=== PATIENT | female | born 1945 | race Caucasian/White ===

== ENCOUNTER 2021-02-24 12:49 | Day surgery (SDC) | payer MEDICARE, OTHER ==
[~2021-02-24] VITALS: Ht 170.2 cm; Wt 66.0 kg
[~2021-02-24 12:49] MED LIST: ALDACTONE25 MG PO; BONE ESSENT166.75 MG PO; CLOBETASOL 0.0560 G1 TOP; LEVOTHYROXINE50 MC1 PO; METOPROLOL SUCC50 MG PO; OMEPRAZOLE20 MG PO; ZOCOR40 MG PO
--- NOTE | 2021-02-24 14:09 | NUR ---
02/24/21 1409 Ruma Arnold 1359 PT TO PACU DROUSY BUT TALKING DENIES SORE THROAT.
--- NOTE | 2021-02-25 13:48 | OR ---
[facility] [address] [place], [place] [address] Signed DATE OF OPERATION: 02/24/2021 SURGEON: Naomi Blevins MD PREOPERATIVE DIAGNOSIS: Known distal esophageal Garcia's epithelium. POSTOPERATIVE DIAGNOSES: 1. Short-segment Garcia's epithelium, benign appearing. 2. Small superficial mid esophageal nodules, biopsied. PROCEDURE: Esophagogastroduodenoscopy with biopsy. ANESTHESIA: Intravenous sedation, fentanyl 100 mcg and Versed 4 mg. INDICATION: This 75-year-old white woman is a patient of Dr. Jah Flores. She has known Garcia's esophagus, has undergone surveillance endoscopy over many years. Her last upper endoscopy was three years ago by Dr. Hayes Harris in [place]. She has no dysphagia or other problems. She is taking the PPI medication currently. She has no family history of esophageal cancer that she knows of. She is admitted to undergo surveillance upper endoscopy. She understands the risks of bleeding, infection, and perforation. FINDINGS: Vocal cords were normal. The proximal esophagus was entirely normal. There were few superficial mucosal nodules at 33 cm from the incisors. The distal esophagus showed no sign of stricture or neoplasm. Garcia's epithelium was identified, but was not extensive and not worrisome at all in appearance. The stomach itself showed normal rugal folds. There was some bilious fluid within the stomach. The pylorus was normal. Duodenum was normal. Retroflexed view showed a good flap valve of the GE junction. CLOtest was negative post procedure. PROCEDURE NOTE: Patient was brought to the endoscopy suite, given topical lidocaine hypopharyngeal anesthesia. She was given intravenous sedation to the point of slurred speech and nystagmus with full cardiopulmonary monitoring. A bite block was placed. An Olympus video upper endoscope was passed in the hypopharynx. The vocal cords were normal. The Electronically Signed By: NAOMI BLEVINS MD 02/25/21 1348 PATIENT NAME: KEVIN PAEZ OPERATIVE REPORT DATE OF : 47 REPORT #: [id number] PHYSICIAN: NAOMI BLEVINS MD PCP: JAH FLORES MD REPORT IS CONFIDENTIAL AND NOT TO BE RELEASED WITHOUT AUTHORIZATION [facility] [address] [place], [place] [address] Signed scope was advanced to the esophagus and it appeared normal proximally and in the distal portion, only a small amount of Garcia's esophagus noted. There was no mucosal island effect or anything of that sort certainly no stricture or neoplasm. The scope was passed to the stomach, which was insufflated with air. There was some bilious fluid within the stomach. Rugal folds were normal. Antrum was reasonably normal. Some mild erythema in the prepyloric area. The scope was easily passed in the duodenum, which was normal. Biopsies were taken of the duodenum. The scope was withdrawn and biopsies taken of prepylorus area. The scope was withdrawn. A retroflexed view undertaken showing a reasonably good flap valve. No sign of large hiatal hernia in any way. The scope was straightened and withdrawn to the distal esophagus where narrow band imaging was undertaken. The area of Garcia's epithelium was identified, that was rather unimpressive and certainly not large in any way. Multiple biopsies were taken of the Garcia's epithelium. The scope was withdrawn in the mid esophageal area at about 33 cm, showed a few mid mucosal nodules. These were biopsied as well. The scope was withdrawn. There were no other findings more proximally. Scope was removed and the patient was taken to the recovery room in good condition. CONCLUSION DIAGNOSIS: Garcia's epithelium, innocuous in appearance. Mucosal nodules in the mid esophagus, likely benign. Pathology pending. PLAN: Recommend continued use of PPI medication. Repeat upper endoscopy in 3 years sooner if symptoms should develop including dysphagia. MD BEVERLY Carlson/RUTHL /[id number] cc: Jah Flores MD Copies: JAH FLORES MD Electronically Signed By: NAOMI BLEVINS MD 02/25/21 1348 PATIENT NAME: KEVIN PAEZ OPERATIVE REPORT DATE OF : 47 REPORT #: [id number] PHYSICIAN: NAOMI BLEVINS MD PCP: JAH FLORES MD REPORT IS CONFIDENTIAL AND NOT TO BE RELEASED WITHOUT AUTHORIZATION [address] [place], [place] [address] Signed ~ Electronically Signed By: NAOMI BLEVINS MD 02/25/21 1348 PATIENT NAME: KEVIN PAEZ OPERATIVE REPORT DATE OF : 47 REPORT #: [id number] PHYSICIAN: NAOMI BLEVINS MD PCP: JAH FLORES MD REPORT IS CONFIDENTIAL AND NOT TO BE RELEASED WITHOUT AUTHORIZATION
--- NOTE | 2021-02-28 16:39 | PATH ---
[facility] [address] [place], [place] [address] Signed THIS IS AN ADDENDUM REPORT SPECIMEN(S): A DUODENUM SPECIMEN(S): B ANTRUM/PYLORUS SPECIMEN(S): C DISTAL ESOPHAGUS SPECIMEN(S): D MID ESOPHAGUS SPECIMEN SOURCE: A. DUODENUM B. ANTRUM/PYLORUS C. DISTAL ESOPHAGUS D. MID ESOPHAGUS CLINICAL HISTORY: Esophagogastroduodenoscopy with possible biopsies. History of Garcia's esophagus. Postop Dx: Minimal Garcia's esophagus, mid-esophageal mucosal nodule. MICROSCOPIC DESCRIPTION: Histologic sections of all submitted blocks are examined by light microscopy. These findings, together with the gross examination, support the pathologic diagnosis. FINAL PATHOLOGIC DIAGNOSIS: A. Duodenum, biopsy: - Duodenal mucosa with mucosal capillary congestion. - Negative for increased intraepithelial lymphocytes or villous blunting. - Negative for dysplasia or malignancy. B. Stomach, antrum/pylorus, biopsy: - Antral/oxyntic mucosa with reactive gastropathy and focal chronic, active gastritis. - Negative for Helicobacter organisms on HE stain, see Comment. - Negative for dysplasia or malignancy. - See comment. C. Esophagus, distal, biopsy: - Squamocolumnar junctional mucosa with chronic inflammation and reactive epithelial changes, consistent with reflux esophagitis. - Negative for intestinal metaplasia, dysplasia, or malignancy. D. Esophagus, mid, biopsy: - Squamous mucosa with minimal chronic inflammation. - Negative for increased intraepithelial eosinophils. - Negative for intestinal metaplasia, dysplasia, or malignancy. PATIENT NAME: KEVIN PAEZ PATHOLOGY DATE OF : 47 REPORT #: [id number] PHYSICIAN: JIA POLO PCP: JAH COLEMAN MD REPORT IS CONFIDENTIAL AND NOT TO BE RELEASED WITHOUT AUTHORIZATION [facility] [address] [place], [place] [address] Signed COMMENT: Regarding specimen B: An H. pylori immunohistochemical stain is pending and will be reported in an addendum. NAL:cml:C2NR GROSS DESCRIPTION: Four specimens are received in four containers, labeled ``AnsonKevin serna. A. The specimen, labeled "Shirley Paeze, #1," and designated on the requisition "duodenum biopsy," is received in formalin and consists of two orta soft tissue fragment(s) that measure 0.2 and 0.2 cm in greatest dimension. The specimen is entirely submitted in cassette (A1). B. The specimen, labeled "Kevin Paez, #2," and designated on the requisition "antrum/pylorus biopsy," is received in formalin and consists of two orta soft tissue fragment(s) that measure 0.4 and 0.6 cm in greatest dimension. The specimen is entirely submitted in cassette (B1). C. The specimen, labeled "Shirley Paeze, #3," and designated on the requisition "distal esophagus biopsy," is received in formalin and consists of six orta soft tissue fragment(s) that measure 0.2-0.4 cm in greatest dimension. The specimen is entirely submitted in cassette (C1). D. The specimen, labeled "AnsonYazmin sernaerine #4," and designated on the requisition "mid esophagus biopsy," is received in formalin and consists of two white-orta soft tissue fragment(s) that measure 0.4 and 0.5 cm in greatest dimension. The specimen is entirely submitted in cassette (D1). FB (under the direct supervision of a pathologist) The Gross Description was prepared using a voice recognition system. The report was reviewed for accuracy; however, sound-alike word errors, addition and/or deletions may occur. If there is any question about this report, please contact Client Services. PERFORMING LABORATORY: The technical component was performed by [facility] [address] (Stucco Worker: Cathy Mendoza MD; CLIA# [id number]). [facility], [address] [address] (CLIA# [id number]). PATIENT NAME: KEVIN PAEZ PATHOLOGY DATE OF : 47 REPORT #: [id number] PHYSICIAN: JIA POLO PCP: JAH COLEMAN MD REPORT IS CONFIDENTIAL AND NOT TO BE RELEASED WITHOUT AUTHORIZATION [facility] [address] [place], [place] [address] Signed ADDITIONAL NOTES: Immunohistochemical and/or in situ hybridization studies were performed on this case with the appropriate positive controls that react as expected. This test was developed and its performance characteristics determined by [employer]. It has not been cleared or approved by the U.S. Food and Drug Administration. The FDA has determined that such clearance or approval is not necessary. This test is used for clinical purposes. It should not be regarded as investigational or for research. [employer] is certified under the Clinical Laboratory Improvement Amendments of 1988 (CLIA) as qualified to perform high complexity clinical laboratory testing. This assay has not been validated for specimens that have been decalcified. The technical component was performed by [employer] [facility], [address] [place] [id number] (Stucco Worker: Cathy Mendoza MD; CLIA# [id number]). [facility], [address] [place] [id number] (CLIA# [id number]). REASON FOR ADDENDUM: To add results of additional testing. ADDENDUM PAHTOLOGIC DIAGNOSIS: Regarding specimen B: An H. pylori immunohistochemical stain (with appropriately staining controls) is negative for Helicobacter organisms. NAL:[facility] Diagnostician: Tiffany Flynn MD Pathologist Electronically Signed 02/28/2021 Copies: ~ PATIENT NAME: KEVIN PAEZ STEWART PATHOLOGY DATE OF : 47 REPORT #: [id number] PHYSICIAN: [employer] PATHOLOGY PCP: JAH COLEMAN MD REPORT IS CONFIDENTIAL AND NOT TO BE RELEASED WITHOUT AUTHORIZATION
== END 2021-02-24 14:43 | disposition home or self-care (01) ==
LOC: DS 12:49 → OPS 12:49 → DS 14:00 → OPS 14:43
PROVIDERS: ATTEND Surgery
PROC: 0DB78ZX Excision of Stomach, Pylorus, Via Natural or Artificial Opening Endoscopic, Diagnostic (ICD-10-PCS; 2021-02-24)
PROC: 0DB48ZX Excision of Esophagogastric Junction, Via Natural or Artificial Opening Endoscopic, Diagnostic (ICD-10-PCS; 2021-02-24)
PROC: 0DB98ZX Excision of Duodenum, Via Natural or Artificial Opening Endoscopic, Diagnostic (ICD-10-PCS; principal; 2021-02-24 14:00)
DX: K22.70 Barrett's esophagus without dysplasia (principal); I10 Essential (primary) hypertension; I70.1 Atherosclerosis of renal artery; E03.9 Hypothyroidism, unspecified; Z90.49 Acquired absence of other specified parts of digestive tract; Z87.19 Personal history of other diseases of the digestive system; Z87.891 Personal history of nicotine dependence
CPT/HCPCS: 88305; 88342; 99153; G0500; J2250; J3010; J7121

== ENCOUNTER 2024-12-01 13:11 | Day surgery (SDC) | payer MEDICARE, OTHER ==
[~2024-12-01] VITALS: Ht 170.2 cm; Wt 65.8 kg
[~2024-12-01 13:11] MED LIST changes: +ASPIRIN325 MG PO; +BENZONATATE200 MG PO; +IBLOOD GLUCOSE TEST STRIP 1 EA TEST VI PRN; +LACTATED RINGER'S 1,000 ML IV SCH; +LIDOCAINE HCL 1% 5 ML SDV INJ ONE; +LIDOCAINE HCL 4% 50 ML BTL TOP SCH; +MAGNESIUM250 M1 PO; +MIDAZOLAM HCL 5 MG/5 ML VIAL IV PRN; +NITROFURANTOIN100 MG PO; +OSTERA TABLET1 EACH; +PRILOSEC OTC20 MG PO; +VIACTIV 650 MG1 EACH PO; +fentaNYL citrate 100 MCG/2 ML VIAL IV PRN
[2024-12-01 13:29] VITALS: BP 161/61
[2024-12-01] MEDS ORDERED: MIDAZOLAM HCL 5 MG/5 ML VIAL ONE (14:07)
[2024-12-01] MEDS ORDERED: fentaNYL citrate 100 MCG/2 ML VIAL ONE (14:07)
--- NOTE | 2024-12-01 14:51 | NUR ---
12/01/24 1451 Carmen Dutta OXYGEN SATURATION 98% ON 3L VIA NC. OXYGEN IS REDUCED TO 1L VIA NC.
[2024-12-01 15:31] VITALS: BP 130/59
--- NOTE | 2024-12-01 20:53 | OR ---
[facility] [facility] [address] [place], [place] [address] Signed DATE OF OPERATION: 12/01/2024 SURGEON: Naomi Blevins MD PREOPERATIVE DIAGNOSIS: Known history of Garcia's esophagus. POSTOPERATIVE DIAGNOSES: 1. Distal esophageal Garcia's esophagus without evidence of neoplasm. 2. Reactive gastric polyps. 3. Intact flap valve. PROCEDURE: Esophagogastroduodenoscopy with biopsy. ANESTHESIA: Intravenous sedation; fentanyl 100 mcg and Versed 3 mg. INDICATION: This 79-year-old white woman is a patient of Dr. Jah Flores. She is known to have Garcia's esophagus. She underwent upper endoscopy by me in 2020 showing only short-segment Garcia's epithelium. She has no associated dysphagia or other problems currently. She is admitted to undergo surveillance upper endoscopy on the basis of her known Garcia's esophagus. She understands the risk of bleeding, infection, and perforation and wished to proceed. FINDINGS: She clearly did have Garcia's esophagus. It was not extensive and not associated with a stricture or neoplasm. Notably, the flap valve was quite intact and looked entirely normal. There were some reactive polyps of the stomach, no doubt related to ongoing use of PPI use. There were no other findings of concern. CLOtest was negative. DESCRIPTION OF PROCEDURE: The patient was brought to the endoscopy suite and placed in lateral decubitus position after undergoing lidocaine hypopharyngeal anesthesia. A bite block was placed. Full cardiopulmonary monitoring was maintained. The Olympus video upper endoscope was passed in the hypopharynx. The vocal cords appeared normal. Scope was advanced to the esophagus without problem. In the distal esophagus, there was quite obvious Garcia's epithelium. Narrow-band imaging confirmed Electronically Signed By: NAOMI BLEVINS MD 12/01/242052 PATIENT NAME: KEVIN PAEZ OPERATIVE REPORT DATE OF : 47 REPORT #: [id number] PHYSICIAN: NAOMI BLEVINS MD PCP: JAH FLORES MD REPORT IS CONFIDENTIAL AND NOT TO BE RELEASED WITHOUT AUTHORIZATION [facility] [address] [place], [place] [address] Signed this more fully and photographs were taken. The scope was advanced to the stomach which was insufflated with air. Rugal folds were normal. The antrum had mild inflammation but not much. The pylorus was normal. Scope was passed into the duodenum, which was entirely normal. The scope was withdrawn and biopsies taken of the antrum for both SRAVANTHI and pathologic testing. Retroflexed view was undertaken confirming some gastric polyps, likely reactive to PPI medication use. The flap valve itself was surprisingly intact. There was no sign of hiatal hernia particularly. An excision of a single gastric polyp was undertaken represented as sample. The scope was withdrawn and biopsies then taken in multiple areas of the distal esophagus in relation to Garcia's epithelium. Scope was further withdrawn. The midesophagus was biopsied, though it appeared normal. The scope was removed and the patient was taken to the recovery room in good condition. CONCLUDING DIAGNOSIS: Clear evidence of Garcia's epithelium. No evidence of neoplasm, stricture, or other problem. PLAN: Recommend continued use of PPI medication. Would repeat upper endoscopy in three years, sooner if symptoms should develop. She will return to the ongoing care of Dr. Flores. Naomi Blevins MD JM/MODL /[id number] cc: Dr. Flores. Copies: ~ Electronically Signed By: NAOMI BLEVINS MD 12/01/242052 PATIENT NAME: KEVIN PAEZ OPERATIVE REPORT DATE OF : 47 REPORT #: [id number] PHYSICIAN: NAOMI BLEVINS MD PCP: JAH FLORES MD REPORT IS CONFIDENTIAL AND NOT TO BE RELEASED WITHOUT AUTHORIZATION
--- NOTE | 2024-12-02 12:44 | PATH ---
[facility] [address] [place], [place] [address] Signed SPECIMEN(S): A ANTRUM BIOPSY SPECIMEN(S): B STOMACH POLYP SPECIMEN(S): C LOWER ESOPHAGEAL BIOPSY SPECIMEN(S): D MIDDLE ESOPHAGEAL BIOPSY SPECIMEN SOURCE: A. ANTRUM BIOPSY B. STOMACH POLYP C. LOWER ESOPHAGEAL BIOPSY D. MIDDLE ESOPHAGEAL BIOPSY CLINICAL HISTORY: Past dx Garcia's, family history of esophageal cancer, a.m. nausea, occasional dysphagia FINAL PATHOLOGIC DIAGNOSIS: A. Stomach, antrum, biopsy: - Gastric antral mucosa with no significant pathologic changes - Negative for Helicobacter pylori with HE stains B. Stomach, polypectomy: - Fundic gland polyp C. Esophagus, lower, biopsy: - Squamoglandular mucosa with no significant pathologic changes; negative for intestinal metaplasia D. Esophagus, middle, biopsy: - Esophageal squamous mucosa with no significant pathologic changes BRP MICROSCOPIC EXAMINATION: Histologic sections of all submitted blocks are examined by light microscopy. These findings, together with the gross examination, support the pathologic diagnosis. GROSS DESCRIPTION: A. The specimen, labeled and designated "Cambier, antrum biopsy," is received in formalin and consists of two orta soft tissue fragments, ranging from 0.3-0.4 cm. Entirely submitted in (A1). B. The specimen, labeled and designated "Cambier, stomach polyp," is received in formalin and consists of two orta soft tissue fragments, ranging from 0.2-0.3 cm. Entirely submitted in (B1). C. The specimen, labeled and designated "Cambier, lower esophageal biopsy," is PATIENT NAME: KEVIN PAEZ PATHOLOGY DATE OF : 47 REPORT #: [id number] PHYSICIAN: JIA POLO PCP: JAH COLEMAN MD REPORT IS CONFIDENTIAL AND NOT TO BE RELEASED WITHOUT AUTHORIZATION [facility] [address] [place], [place] [address] Signed received in formalin and consists of four orta soft tissue fragments, ranging from 0.2-0.4 cm. Entirely submitted in (C1). D. The specimen, labeled and designated "Chloe, middle esophageal biopsy," is received in formalin and consists of two orta soft tissue fragments, ranging from 0.3-0.6 cm. Entirely submitted in (D1). VB (under the direct supervision of a pathologist) The Gross Description was prepared using a voice recognition system. The report was reviewed for accuracy; however, sound-alike word errors, addition and/or deletions may occur. If there is any question about this report, please contact Client Services. ADDITIONAL NOTES: Immunohistochemical and/or in situ hybridization studies if performed in this case included appropriate positive controls that reacted as expected. This test was developed and its performance characteristics determined by [employer]. It has not been cleared or approved by the U.S. Food and Drug Administration. The FDA has determined that such clearance or approval is not necessary. This test is used for clinical purposes. It should not be regarded as investigational or for research. [employer] is certified under the Clinical Laboratory Improvement Amendments of 1988 (CLIA) as qualified to perform high complexity clinical laboratory testing. Technical component was performed by [employer], [address] [place] [address] (CLIA# [id number]). Professional interpretation was performed by [facility] [place], [address] [place] [address] (CLIA#: [id number]). Diagnostician: Shaheen Catalan MD Pathologist Electronically Signed 12/02/2024 Copies: ~ PATIENT NAME: KEVIN PAEZ STEWART PATHOLOGY DATE OF : 47 REPORT #: [id number] PHYSICIAN: JIA PATHOLOGY PCP: JAH COLEMAN MD REPORT IS CONFIDENTIAL AND NOT TO BE RELEASED WITHOUT AUTHORIZATION
== END 2024-12-01 15:35 | disposition home or self-care (01) ==
LOC: DS 13:11
PROVIDERS: ATTEND Surgery
PROC: 0DB68ZX Excision of Stomach, Via Natural or Artificial Opening Endoscopic, Diagnostic (ICD-10-PCS; principal; 2024-12-01 14:00)
DX: K22.70 Barrett's esophagus without dysplasia (principal); K31.7 Polyp of stomach and duodenum; K21.9 Gastro-esophageal reflux disease without esophagitis; K59.09 Other constipation; I10 Essential (primary) hypertension; E03.9 Hypothyroidism, unspecified; Z79.890 Hormone replacement therapy; Z79.899 Other long term (current) drug therapy; Z88.5 Allergy status to narcotic agent; Z90.711 Acquired absence of uterus with remaining cervical stump
CPT/HCPCS: 88305; 99153; G0500; J2250; J3010; J7121